=== PATIENT | female | born 1950 | race Caucasian/White ===

== ENCOUNTER → 2024-03-18 | Outpatient (CLI) | payer MEDICARE, BC, SELFPAY ==
[2024-03-18 11:31] LABS: Basophils % (Auto) 0 % (0-2.5); Eosinophils # (Auto) 0.2 Thou/mm3 (0.0-0.5); Eosinophils % (Auto) 4 % (0-10); Hematocrit 39.6 % (36.0-46.0); Hemoglobin 13.5 g/dL (12.0-16.0); Immature Granulocytes % (Auto) 0 % (0-0); Immature Granulocytes Auto 0.02 Thou/mm3 (0.00-0.00); Lymphocytes # (Auto) 1.5 Thou/mm3 (1.0-4.8); Lymphocytes % (Auto) 26 % (10-50); Mean Corpuscular HGB Conc 34.1 g/dl (31.0-37.0); Mean Corpuscular Hemoglobin 29.1 pg (25.0-35.0); Mean Corpuscular Volume 85 fL (80-100); Monocytes # (Auto) 0.7 Thou/mm3 (0.0-0.8); Monocytes % (Auto) 13 % (0-12); Neutrophils # (Auto) 3.3 Thou/mm3 (1.8-7.7); Neutrophils % (Auto) 57 % (37-80); Nucleated Red Blood Cell % 0 /100 WBC (0); Platelet Count 221 Thou/mm3 (140-440); RDW Standard Deviation 41.1 fL (36.4-46.3); Red Blood Count 4.64 Miln/mm3 (4.00-5.20); White Blood Count 5.8 Thou/mm3 (3.6-11.0)
[2024-03-18 12:08] LABS: Alanine Aminotransferase 20 U/L (10-49); Albumin, Serum 4.7 gm/dL (3.4-4.8); Albumin/Globulin Ratio 1.9 (1.2-2.2); Alkaline Phosphatase 53 U/L (46-116); Anion Gap 7 (7-16); Aspartate Amino Transferase 27 U/L (0-34); BUN/Creatinine Ratio 23 Ratio (12-20); Bilirubin,Total 0.3 mg/dL (0.3-1.2); Blood Urea Nitrogen 21 mg/dL (9-23); Calcium 9.9 mg/dL (8.3-10.6); Calcium (Corrected) 9.9 mg/dL (8.5-10.1); Carbon Dioxide 24.8 mMol/L (20.0-31.0); Cardiac Risk Estimate 3.6 RATIO (3.7-5.6); Chloride 102 mMol/L (98-107); Cholesterol 263 mg/dL (132-200); Creatinine (Component) 0.9 mg/dL (0.6-1.3); Globulin 2.5 gm/dL (2.3-3.5); Glucose 91 mg/dL (74-106); HDL Cholesterol 74 mg/dL (40-60); LDL Cholesterol,Calculated 156 mg/dL (0-130); Osmolality,Calculated 271 (275-295); Potassium 5.1 mMol/L (3.4-5.1); Sodium 134 mMol/L (136-145); Thyroid Stimulating Hormone 3.57 uIU/mL (0.55-4.78); Total Protein 7.2 gm/dL (5.7-8.2); Triglycerides 164 mg/dL (30-150); eGFR > 60 See Note
[2024-03-18 13:31] LABS: Collection Type, Urine Clean Catch
[2024-03-18 14:25] LABS: Bacteria,Urine Rare; Bilirubin,Urine Negative (Negative); Blood,Urine Negative (Negative); Color,Urine Yellow (Lt Yel-Yel); Glucose, Urine Negative (Negative); Ketones,Urine Negative (Negative); Leukocyte Esterase,Urine Positive (Negative); Nitrite,Urine Negative (Negative); Protein,Urine Trace (Neg - Trace); RBC,Urine 2 /hpf (0-3); Specific Gravity,Urine 1.021 (1.001-1.035); Squamous Epithelial Cell,Urine 8 /hpf (0-5); Transitional Epi Cells,Urine 2 /hpf (0-5); Urobilinogen,Urine Negative mg/dL (0.0-1.0); WBC,Urine 97 /hpf (0-5)
[2024-03-18 14:28] LABS: Clarity,Urine Hazy (Clear/Hazy); Culture Indicated,Urine Yes
== END | disposition home or self-care (01) ==
LOC: COPL 10:22
PROVIDERS: PCP Nurse Practitioner Family; Referring Provider Nurse Practitioner Family; Visit Provider Nurse Practitioner Family
DX: I10 Essential (primary) hypertension (principal); E03.9 Hypothyroidism, unspecified; E78.2 Mixed hyperlipidemia
CPT/HCPCS: 36415; 80053; 80061; 81001; 84443; 85025; 87086

== ENCOUNTER 2024-04-06 15:37 | Emergency (ER) | payer MEDICARE, BC, SELFPAY ==
[2024-04-06 15:39] VITALS: BP 146/84; PULSE 102; RESP 19; TEMP 37.2; O2SAT 98
--- NOTE | 2024-04-06 16:10 | PC.NURSE ---
Patient states that she knows she is in a hospital but she isn't sure which one, she is unaware of where she lives, and does not know who the president is. Oriented to name and date of . Pupils equal bilaterally, moderate strength to bilateral upper extremities. Pt states she is not in pain however she is feeling anxious.
--- NOTE | 2024-04-06 16:25 | PC.NURSE ---
Patient stated her had . 10 min later she stated she is waiting for him to come get her so she can go home
--- NOTE | 2024-04-06 17:09 | XR_ITS ---
Examination: AP chest single view Technique: AP portable upright chest single view Exam date and time: April 06, 2024 at 1755 hrs. Indications: Chest pain shortness of breath today Comparison: June 05, 2023 Findings: Significant hyperexpansion Normal heart size No pneumonia or pulmonary edema Impression: COPD No pneumonia or pulmonary edema
--- NOTE | 2024-04-06 17:09 | EKG_ITS ---
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
--- NOTE | 2024-04-06 17:15 | EDNOTE_ITS ---
Altered Mental Status RME/HPI General Chief Complaint: Altered Mental Status Stated Complaint: ALTERED Time Seen by Provider: 04/06/24 16:24 Arrival date/time: 04/06/24 15:37 RME / HPI RME / HPI narrative: 74-year-old female patient with significant history of hypertension, dementia, hypothyroidism, was brought in by family for evaluation regarding worsening confusion. It was noted earlier today severity of symptoms mild. On my eval uation, patient is denying any complaints. No vomiting no diarrhea. No fever. No cough. No abdominal pain. Family is worried that patient might be dehydrated. Related Data Home Medications ?Medication ?Instructions ?Recorded ?Confirmed benztropine 2 mg tablet 2 mg PO BID 06/15/20 07/29/20 amlodipine 5 mg tablet 10 mg PO QAM 07/29/20 07/29/20 gabapentin 300 mg capsule 300 mg PO QPM 07/29/20 07/29/20 metoprolol tartrate 50 mg tablet 50 mg PO QAM 07/29/20 07/29/20 mirtazapine 30 mg tablet 30 mg PO QPM 07/29/20 07/30/20 rosuvastatin 10 mg tablet 10 mg PO QAM 07/29/20 07/29/20 valproic acid 250 mg capsule 250 mg PO QAM 07/29/20 07/30/20 valproic acid 250 mg capsule 500 mg PO QPM 07/29/20 07/30/20 venlafaxine 150 mg tablet,extended 150 mg PO QAM 07/29/20 07/29/20 release 24 hr aripiprazole 10 mg tablet 10 mg PO QDAY 07/30/20 07/30/20 Previous Rx's ?Medication ?Instructions ?Recorded levothyroxine 100 mcg tablet 125 mcg (1.25 x 100 mcg) PO QAM #0 08/03/20 tabs levothyroxine 125 mcg capsule 125 mcg PO QDAY #30 caps 08/03/20 ciprofloxacin HCl 500 mg tablet 500 mg PO BID #20 tabs 02/19/22 prednisone 50 mg tablet 50 mg PO QDAY #5 tabs 06/05/23 Allergies Allergy/AdvReac Type Severity Reaction Status Date / Time No Known Allergies Allergy Unverified 06/16/20 10:30 Review of Systems Review of Systems Narrative Review of Systems: Review of system reviewed and within normal limits except mentioned in HPI ED Exam Narrative Physical exam: VITAL SIGNS: Reviewed. GENERAL APPEARANCE: Alert and interactive, follows simple commands, no acute distress, HEAD AND FACE: Non-traumatic. ENT: PERRL, pink conjunctivitis, eyelid no trauma, Mucous membrane moist. NECK: Supple, nontender, no nuchal rigidity. CHEST: No tenderness, no crepitus, no paradoxical movement, no retractions. LUNGS: Clear, well ventilated, symmetric, no rales, no wheezing, no ronchi, no stridor, good breath sounds bilaterally. HEART: Regular rate, regular rhythm, no murmur, no gallops. ABDOMEN: Soft, positive bowel sounds, nondistended, no guarding, nontender, no rebound, no masses, RECTAL: Deferred. GENITAL: Deferred. NEUROLOGICAL: Gross motor function intact sensory function intact, Appropriate for age. MUSCULOSKELETAL: low back nontender, full range of motion. EXTREMITIES: Nontender, full range of motion. SKIN: Color pink, dry, no rash, no lacerations, no abrasions, no contusions. LYMPHATICS: Deferred. Course Quality Measures none Orders Category Date Time Status EKG (ED ONLY) *Do not use* NOW Care 04/06/24 17:10 Completed EKG (ED Only) Stat Exams 04/06/24 17:09 Draft XR chest 1V portable Stat Exams 04/06/24 17:09 Completed B-Type Natriuretic Peptide Stat Lab 04/06/24 17:45 Completed CBC Stat Lab 04/06/24 17:45 Completed Comprehensive Metabolic Panel Stat Lab 04/06/24 17:45 Completed Troponin I Stat Lab 04/06/24 17:45 Completed Urinalysis Stat Lab 04/06/24 17:39 Completed Urine Culture Stat Lab 04/06/24 17:39 Received Sodium Chloride 0.9% 1000 ml [Ns] 1,000 ml Med 04/06/24 17:15 Discontinued IV 999 mls/hr Vital Signs Vital signs: Vital Signs Temperature 99.0 F 04/06/24 15:39 Pulse Rate 102 H 04/06/24 15:39 Respiratory Rate 19 04/06/24 15:39 Blood Pressure 146/84 H 04/06/24 15:39 Pulse Oximetry (%) 98 04/06/24 15:39 Oxygen Delivery Method Room Air 04/06/24 15:39 Altered Mental Status MDM Narrative MDM Narrative:: Patient workup today all came back normal no UTI x-ray no pneumonia, patient was given IV fluids and was noted to be more alert than usual according to the family. Patient is ambulatory unaided also. Patient stable for discharge home Patient data External records reviewed:: None Clinical information provided by:: family Social determinants that could affect healthcare access:: none Patient has the following chronic illnesses:: Dementia hypertension How is presenting disease/condition affected by chronic disease/condition?: exacerbated by Evaluation data The following diagnostics were reviewed and interpreted by me:: lab results, radiology exam(s) and EKG tracing(s) Lab and/or radiology exams considered but not ordered:: None Interpretation Summary: Laboratory workup all came back unremarkable. I personally reviewed and interpreted the x-ray of this patient. There is no acute abnormalities found, no infiltrates no pneumothorax no hemothorax normal chest x-ray. Review of other structures was without significant abnormal findings also. I additionally reviewed the radiologist report and agree with the interpretation. Urinalysis no UTI EKG showed as interpreted by me as normal sinus rhythm, ventricular rate of 65 bpm, no ST segment elevation or depression noted Medications / Prescriptions Medications or Prescriptions considered but not ordered:: None Medication administrations:: Medication Administration History Discontinued Medications Sodium Chloride (Ns) 1,000 mls @ 999 mls/hr IV .Q1H1M ONE Stop: 04/06/24 18:15 Last Infusion: 04/06/24 18:29 Dose: Infused Documented By: Admin: 04/06/24 17:25 Dose: 999 mls/hr Documented By: IV fluids for hydration Consultations Consultation(s) initiated? (list below): No Diagnosis Differential diagnosis altered mental status: altered mental status, delirium and other (Dehydration) Most likely diagnosis given after review of the tests above:: Dehydration, history of dementia Admission Indicated Admission indicated?: not indicated Admission Request Was there a request for admission?: No Disposition Plan Disposition Plan: Discharge Discharge Attestation Discharge Attestation: The patient and all family members were given an opportunity to ask questions and understood the discharge instructions. Discharge instructions specifically effects, indications for sooner follow up or return to the emergency department, and the expected course of current diagnosis. Patient condition: Stable Discharge Plan Plan Patient Disposition: HOME (Self Care) Disposition Comment: Stable Prescriptions/Referrals Prescriptions/Med Rec: No Action benztropine 2 mg Tablet 2 mg PO BID valproic acid 250 mg Capsule 250 mg PO QAM valproic acid 250 mg Capsule 500 mg PO QPM mirtazapine 30 mg Tablet 30 mg PO QPM metoprolol tartrate 50 mg Tablet 50 mg PO QAM gabapentin 300 mg Capsule 300 mg PO QPM venlafaxine 150 mg Tablet Extended Release 24hr 150 mg PO QAM rosuvastatin 10 mg Tablet 10 mg PO QAM amlodipine 5 mg tablet 10 mg PO QAM aripiprazole 10 mg Tablet 10 mg PO QDAY levothyroxine 125 mcg capsule 125 mcg PO QDAY Qty: 30 0RF levothyroxine 100 mcg Tablet 125 mcg PO QAM Qty: 0 0RF prednisone 50 mg tablet 50 mg PO QDAY Qty: 5 0RF Rx Instructions: Begin taking this medication tomorrow ciprofloxacin HCl 500 mg tablet 500 mg PO BID Qty: 20 0RF Referrals: Thom Molina MD [Primary Care Provider] - In 1 week Problem List Clinical Impression: Dehydration Patient/Caregiver Discharge Instructions Discharge Activity: activity as tolerated Education Materials: Dehydration Additional Instructions: Thank you for the opportunity for serving you today. You are stable for discharged . You are advised to: Follow-up with your PCP in 1 to 2 days Return to ED for worsening of symptoms Increase oral fluids Print Language: Korean Stand Alone Forms: Priscila Award Info., Patient Portal Info Letter JENNY/THEODORE Supervising Physician JENNY/THEODORE Supervising Physician: MD Wiliam
[2024-04-06] MEDS: SODIUM CHLORIDE 0.9% 1000 ML 1,000 ML 999 ML IV (17:25)
[2024-04-06 17:27] VITALS: BMI 25.0
[2024-04-06 17:45] LABS: Collection Type, Urine Catheter; Squamous Epithelial Cell,Urine 0 /hpf (0-5)
[2024-04-06 17:51] LABS: Bilirubin,Urine Negative (Negative); Blood,Urine Negative (Negative); Clarity,Urine Clear (Clear/Hazy); Color,Urine Colorless (Lt Yel-Yel); Glucose, Urine Negative (Negative); Ketones,Urine Negative (Negative); Leukocyte Esterase,Urine Negative (Negative); Nitrite,Urine Negative (Negative); Protein,Urine Negative (Neg - Trace); RBC,Urine 1 /hpf (0-3); Specific Gravity,Urine 1.012 (1.001-1.035); Urobilinogen,Urine Negative mg/dL (0.0-1.0); WBC,Urine < 1 /hpf (0-5)
[2024-04-06 17:58] LABS: Basophils % (Auto) 1 % (0-2.5); Eosinophils # (Auto) 0.1 Thou/mm3 (0.0-0.5); Eosinophils % (Auto) 2 % (0-10); Hemoglobin 12.4 g/dL (12.0-16.0); Immature Granulocytes % (Auto) 0 % (0-0); Immature Granulocytes Auto 0.01 Thou/mm3 (0.00-0.00); Lymphocytes # (Auto) 1.7 Thou/mm3 (1.0-4.8); Lymphocytes % (Auto) 32 % (10-50); Mean Corpuscular HGB Conc 33.5 g/dl (31.0-37.0); Mean Corpuscular Hemoglobin 29.2 pg (25.0-35.0); Mean Corpuscular Volume 87 fL (80-100); Monocytes # (Auto) 0.7 Thou/mm3 (0.0-0.8); Monocytes % (Auto) 13 % (0-12); Neutrophils # (Auto) 2.9 Thou/mm3 (1.8-7.7); Neutrophils % (Auto) 53 % (37-80); Nucleated Red Blood Cell % 0 /100 WBC (0); Platelet Count 193 Thou/mm3 (140-440); RDW Standard Deviation 41.8 fL (36.4-46.3); Red Blood Count 4.25 Miln/mm3 (4.00-5.20); White Blood Count 5.4 Thou/mm3 (3.6-11.0)
[2024-04-06 18:16] LABS: B-Type Natriuretic Peptide < 20 pg/mL (0-100)
[2024-04-06 18:19] LABS: Alanine Aminotransferase 14 U/L (10-49); Albumin, Serum 4.4 gm/dL (3.4-4.8); Albumin/Globulin Ratio 1.8 (1.2-2.2); Alkaline Phosphatase 56 U/L (46-116); Anion Gap 5 (7-16); BUN/Creatinine Ratio 17 Ratio (12-20); Bilirubin,Total 0.3 mg/dL (0.3-1.2); Blood Urea Nitrogen 19 mg/dL (9-23); Calcium 9.3 mg/dL (8.3-10.6); Calcium (Corrected) 9.3 mg/dL (8.5-10.1); Carbon Dioxide 30.3 mMol/L (20.0-31.0); Chloride 102 mMol/L (98-107); Creatinine (Component) 1.1 mg/dL (0.6-1.3); Estimated Creatinine Clearance 41.6 mL/min (>60); Globulin 2.4 gm/dL (2.3-3.5); Glucose 110 mg/dL (74-106); Osmolality,Calculated 277 (275-295); Potassium 4.3 mMol/L (3.4-5.1); Sodium 137 mMol/L (136-145); Total Protein 6.8 gm/dL (5.7-8.2); Troponin I < 0.020 ng/mL (0.0-0.045); eGFR 53 See Note
[2024-04-06 18:35] LABS: Aspartate Amino Transferase 19 U/L (0-34)
[2024-04-06 18:37] VITALS: BP 155/78; PULSE 64; RESP 20; TEMP 36.7; O2SAT 98
[2024-04-06 19:53] VITALS: BP 167/69; PULSE 70; RESP 19; TEMP 36.7; O2SAT 100
== END 2024-04-06 20:22 | disposition home or self-care (01) ==
PROVIDERS: Emergency Provider Emergency Medicine; PCP Family Medicine
DX: E86.0 Dehydration (principal); R07.9 Chest pain, unspecified; R06.02 Shortness of breath; I10 Essential (primary) hypertension; F03.90 Unspecified dementia, unspecified severity, without behavioral disturbance, psychotic disturbance, mood disturbance, and anxiety
CPT/HCPCS: 51701; 36415; 71045; 80053; 81001; 83880; 84484; 85025; 87086; 93005; 96360; 99284; J7030

== ENCOUNTER 2024-06-19 07:34 | Emergency (ER) | payer SELFPAY ==
[2024-06-19] VITALS (8 sets, daily range): BP systolic 114–172; BP diastolic 53–85; PULSE 70–91; RESP 17–29; TEMP 36.9–37.6; O2SAT 91–99; BMI 21.6
--- NOTE | 2024-06-19 | XR_ITS ---
Examinations: MRI Brain without intravenous contrast. MRA brain without intravenous contrast. MRA carotids without intravenous contrast 3-D vascular reconstructions Date and time of exam: June 19, 2024 1358 hours INDICATIONS: Expressive aphasia today Technique: Multiple axial and sagittal images of the brain have been obtained MRA brain carotid images without contrast obtained, including 3-D postprocessing, vascular maximum intensity projection images Findings: Sellaturcica is not enlarged. The optic chiasm and infundibular stalk are not remarkable. Prepontine and interpeduncular cisterns are not enlarged. No localized enlargement of the medulla or cee. Fourth ventricle and cerebellar tonsils normal in position. Subacute hemorrhage is not seen. Fourth ventricle is midline. Mass in the cerebellopontine angle region is not evident. 7th and 8th nerve complexes exhibits symmetry. Globes are symmetrical with no retro-orbital mass. Increased white matter signal very prominent Diffusion-weighted images demonstrate no focus of restricted diffusion Mass-effect upon the ventricular system is not identified. MRA brain images no cerebral large vessel occlusions Impression: Negative for acute hemorrhage mass effect or midline shift No acute infarct Very prominent chronic microvascular white matter change, differential would include chronic multi-infarct dementia pattern
--- NOTE | 2024-06-19 08:23 | PC.NURSE ---
Patient [facility] for c/o Altered, lethargic, more confused than normal, not eating or drinking since monday and pain with urination. Patient is awake, alert, following commands, Per patient cannot recall as to reason for presenting to ED but does respond to name, place cannot recall day/time. Patient stated Im thirsty and my mouth is dry. Patient oriented to nurse and call light is placed within reach.
--- NOTE | 2024-06-19 09:04 | XR_ITS ---
Examination: CT brain head without contrast. 2-D sagittal coronal reconstructions Date and time of exam:June 19, 2024 1041 hours INDICATIONS: Onset altered mental status today CTDI: vol (mGy):47.8 DLP: (mGycm):914 Technique: Multiple CT axial sections of the brain have been obtained, 5 mm slice thickness. Contrast has not been administered. 2-D sagittal, coronal reconstructions have been obtained Low dose protocols were performed. One or more of the following dose reduction techniques were used; automated exposure control, adjustment of the mA and/or KV according to patient size, use of iterative reconstruction technique. Findings: No significant ventricular enlargement. 21 mm ethmoid retention cysts Intra-axial or extra-axial hemorrhage density is not seen. No mass effect or midline shift Basal cisterns are not remarkable. Fourth ventricle is midline. Cranial vault intact. Impression: Negative for acute hemorrhage, mass effect or midline shift Advise clinical correlation and follow-up accordingly
--- NOTE | 2024-06-19 09:04 | XR_ITS ---
Examination: AP chest single view Technique one AP portable upright chest single view Exam date and time: March 19, 2025 0909 hours INDICATIONS: Chest pain today FINDINGS: Mild accentuation basilar bronchovascular markings Normal heart size Prominent osteopenia No pneumonia or pulmonary edema IMPRESSION: Mild basilar bronchitis pattern
--- NOTE | 2024-06-19 09:38 | PD.EDAMS ---
Altered Mental Status RME/HPI General Chief Complaint: Altered Mental Status Stated Complaint: AMS Time Seen by Provider: 06/19/24 08:44 Arrival date/time: 06/19/24 07:34 RME / HPI RME / HPI narrative: DR. POLANCO MAIN ED EVALUATION: 74 year old female with past medical history significant for TX, dementia presents to the Emergency Department [facility] with complaint of altered mental status per EMS. History is limited. Patient is awake, smiling, talks 1-2 words sentences but then unable to recall stuff. Patient does not know why she is here. Patient denies any pain. Related Data Home Medications ?Medication ?Instructions ?Recorded ?Confirmed benztropine 2 mg tablet 2 mg PO BID 06/15/20 07/29/20 amlodipine 5 mg tablet 10 mg PO QAM 07/29/20 07/29/20 gabapentin 300 mg capsule 300 mg PO QPM 07/29/20 07/29/20 metoprolol tartrate 50 mg tablet 50 mg PO QAM 07/29/20 07/29/20 mirtazapine 30 mg tablet 30 mg PO QPM 07/29/20 07/30/20 rosuvastatin 10 mg tablet 10 mg PO QAM 07/29/20 07/29/20 valproic acid 250 mg capsule 250 mg PO QAM 07/29/20 07/30/20 valproic acid 250 mg capsule 500 mg PO QPM 07/29/20 07/30/20 venlafaxine 150 mg tablet,extended 150 mg PO QAM 07/29/20 07/29/20 release 24 hr aripiprazole 10 mg tablet 10 mg PO QDAY 07/30/20 07/30/20 Previous Rx's ?Medication ?Instructions ?Recorded levothyroxine 100 mcg tablet 125 mcg (1.25 x 100 mcg) PO QAM #0 08/03/20 tabs levothyroxine 125 mcg capsule 125 mcg PO QDAY #30 caps 08/03/20 ciprofloxacin HCl 500 mg tablet 500 mg PO BID #20 tabs 02/19/22 prednisone 50 mg tablet 50 mg PO QDAY #5 tabs 06/05/23 Allergies Allergy/AdvReac Type Severity Reaction Status Date / Time No Known Allergies Allergy Unverified 06/20/24 10:03 Review of Systems Review of Systems ROS Unobtainable: unobtainable due to mental status Past Medical History Past Medical History NEUROLOGIC: Positive Dementia CARDIAC: Positive Myocardial Infarction Social History SMOKING STATUS: Never smoker SUBSTANCE USE: does not use ALCOHOL: Never ED Exam Narrative Physical exam: GENERAL APPEARANCE: Patient is awake, smiling, talks 1-2 words sentences but then unable to recall stuff. Generally well-appearing, no acute distress. HEENT: NC, AT. MMM. EOMI, clear conjunctiva, oropharynx clear. NECK: Supple without lymphadenopathy. No stiffness or restricted ROM. HEART: Normal rate and regular rhythm, normal S1/S1, no m/r/g LUNGS: CTAB, moving air well. No crackles or wheezes are heard. ABDOMEN: Soft, nontender, nondistended with good bowel sounds heard. BACK: No midline C/T/L spine pain or deformity, No CVAT, no obvious deformity. EXTREMITIES: Without cyanosis, clubbing or edema. MUSCULOSKELETAL: FROM of all major joints, no chest tenderness NEUROLOGICAL: Grossly nonfocal. CN not formally tested but appear grossly intact. Skin: Warm and dry without any rash. Course Course Course Narrative: Patient remained clinically stable within normal neurologic exam throughout her stay. Patient's granddaughter had arrived and we discussed her mental status. There is suspicion that she has growing dementia, and does not necessarily identify any acute deterioration, however it has been gradually worsening. Reviewed all results, analysis, treatment plan with the granddaughter and she feels comfortable taking her grandmother home. Quality Measures none Orders Category Date Time Status MRI Screening NOW Care 06/19/24 11:[address] head/brain wo con Stat Exams 06/19/24 09:04 Completed MR stroke protocol Stat Exams 06/19/24 Completed XR chest 1V Stat Exams 06/19/24 09:04 Completed Acetaminophen Stat Lab 06/19/24 09:59 Completed Alcohol, Urine Stat Lab 06/19/24 15:29 Completed CBC Stat Lab 06/19/24 09:59 Completed CMP [Comprehensive Metabolic Panel] Stat Lab 06/19/24 09:59 Completed Drug Screen,Urine Stat Lab 06/19/24 15:29 Completed Lactate (Lactic Acid) Stat Lab 06/19/24 09:59 Completed Procalcitonin Stat Lab 06/19/24 09:59 Completed Urinalysis Stat Lab 06/19/24 15:29 Completed Vital Signs Vital signs: Vital Signs Temperature 99.6 F 06/19/24 07:51 Pulse Rate 70 06/19/24 07:51 Respiratory Rate 18 06/19/24 07:51 Blood Pressure 114/64 06/19/24 07:51 Pulse Oximetry (%) 99 06/19/24 07:51 Oxygen Delivery Method Room Air 06/19/24 07:51 Altered Mental Status MDM Narrative MDM Narrative:: Ms. Martinez presents to the emergency department with a report of altered mental status, however if she does not recall why she is here. Clinically she is well-appearing, nontoxic, with a nonfocal neurologic exam. Initial presentation I was able to corroborate further information therefore workup was done including laboratory test and head CT. Results were otherwise unremarkable and significant for no acute intracerebral findings, no electrolyte abnormalities, and no signs of a urinary tract infection. Her granddaughter did come to tend to her wires and noticed that this appears to be more of a subacute to chronic deterioration of her mental status which has been attributed to dementia. To me her picture and her mental status is fitting more with chronic dementia without any acute finding here today. I do not feel that there is an acute delirium present today as she has stable vital signs, nonfocal exam, and no emergent findings on workup. All results were discussed with granddaughter and she does feel comfortable taking the patient home, she is appropriate for outpatient follow-up. I, Ying Cantu, am scribing for and in the presence of Dr. Polanco. Patient data External records reviewed:: EMS form Clinical information provided by:: EMS Social determinants that could affect healthcare access:: none Patient has the following chronic illnesses:: TX, dementia How is presenting disease/condition affected by chronic disease/condition?: exacerbated by Evaluation data The following diagnostics were reviewed and interpreted by me:: lab results and radiology exam(s) Lab and/or radiology exams considered but not ordered:: none Interpretation Summary: Procedure(s): XR chest 1V Accession Number(s): [id number] cc: Cristino Polanco MD; Boni Rasheed MD; NO PRIMARY/FAMILY,PHYSICIAN~ Examination: AP chest single view Technique one AP portable upright chest single view Exam date and time: March 19, 2025 0909 hours INDICATIONS: Chest pain today FINDINGS: Mild accentuation basilar bronchovascular markings Normal heart size Prominent osteopenia No pneumonia or pulmonary edema IMPRESSION: Mild basilar bronchitis pattern Dictated By: Boni Rasheed MD Procedure(s): CT head/brain wo con Accession Number(s): [id number] cc: Cristino Polanco MD; Boni Rasheed MD; NO PRIMARY/FAMILY,PHYSICIAN~ Examination: CT brain head without contrast. 2-D sagittal coronal reconstructions Date and time of exam:June 19, 2024 1041 hours INDICATIONS: Onset altered mental status today CTDI: vol (mGy):47.8 DLP: (mGycm):914 Technique: Multiple CT axial sections of the brain have been obtained, 5 mm slice thickness. Contrast has not been administered. 2-D sagittal, coronal reconstructions have been obtained Low dose protocols were performed. One or more of the following dose reduction techniques were used; automated exposure control, adjustment of the mA and/or KV according to patient size, use of iterative reconstruction technique. Findings: No significant ventricular enlargement. 21 mm ethmoid retention cysts Intra-axial or extra-axial hemorrhage density is not seen. No mass effect or midline shift Basal cisterns are not remarkable. Fourth ventricle is midline. Cranial vault intact. Impression: Negative for acute hemorrhage, mass effect or midline shift Advise clinical correlation and follow-up accordingly Dictated By: Boni Rasheed MD Procedure(s): MR stroke protocol Accession Number(s): [id number] cc: Cristino Polanco MD; Boni Rasheed MD; NO PRIMARY/FAMILY,PHYSICIAN~ Examinations: MRI Brain without intravenous contrast. MRA brain without intravenous contrast. MRA carotids without intravenous contrast 3-D vascular reconstructions Date and time of exam: June 19, 2024 1358 hours INDICATIONS: Expressive aphasia today Technique: Multiple axial and sagittal images of the brain have been obtained MRA brain carotid images without contrast obtained, including 3-D postprocessing, vascular maximum intensity projection images Findings: Sellaturcica is not enlarged. The optic chiasm and infundibular stalk are not remarkable. Prepontine and interpeduncular cisterns are not enlarged. No localized enlargement of the medulla or cee. Fourth ventricle and cerebellar tonsils normal in position. Subacute hemorrhage is not seen. Fourth ventricle is midline. Mass in the cerebellopontine angle region is not evident. 7th and 8th nerve complexes exhibits symmetry. Globes are symmetrical with no retro-orbital mass. Increased white matter signal very prominent Diffusion-weighted images demonstrate no focus of restricted diffusion Mass-effect upon the ventricular system is not identified. MRA brain images no cerebral large vessel occlusions Impression: Negative for acute hemorrhage mass effect or midline shift No acute infarct Very prominent chronic microvascular white matter change, differential would include chronic multi-infarct dementia pattern Dictated By: Boni Rasheed MD Medications / Prescriptions Medications or Prescriptions considered but not ordered:: none Medication administrations:: see above if any Consultations Consultation(s) initiated? (list below): No Diagnosis Differential diagnosis altered mental status: altered mental status, dementia and other (dehydration, UTI, CVA) Most likely diagnosis given after review of the tests above:: Dementia Admission Indicated Admission indicated?: not indicated Admission Request Was there a request for admission?: No Disposition Plan Disposition Plan: Discharge Discharge Attestation Discharge Attestation: The patient and all family members were given an opportunity to ask questions and understood the discharge instructions. Discharge instructions specifically effects, indications for sooner follow up or return to the emergency department, and the expected course of current diagnosis. Patient condition: Stable Discharge Plan Plan Patient Disposition: HOME (Self Care) Prescriptions/Referrals Prescriptions/Med Rec: No Action benztropine 2 mg Tablet 2 mg PO BID valproic acid 250 mg Capsule 250 mg PO QAM valproic acid 250 mg Capsule 500 mg PO QPM mirtazapine 30 mg Tablet 30 mg PO QPM metoprolol tartrate 50 mg Tablet 50 mg PO QAM gabapentin 300 mg Capsule 300 mg PO QPM venlafaxine 150 mg Tablet Extended Release 24hr 150 mg PO QAM rosuvastatin 10 mg Tablet 10 mg PO QAM amlodipine 5 mg tablet 10 mg PO QAM aripiprazole 10 mg Tablet 10 mg PO QDAY levothyroxine 125 mcg capsule 125 mcg PO QDAY Qty: 30 0RF levothyroxine 100 mcg Tablet 125 mcg PO QAM Qty: 0 0RF prednisone 50 mg tablet 50 mg PO QDAY Qty: 5 0RF Rx Instructions: Begin taking this medication tomorrow ciprofloxacin HCl 500 mg tablet 500 mg PO BID Qty: 20 0RF Referrals: No Primary/Family,Physician [Primary Care Provider] - In 1 week Problem List Clinical Impression: Dementia Patient/Caregiver Discharge Instructions Education Materials: ED CAREGIVER SUPPORT for DEMENTIA Additional Instructions: Your urine results were clear today, follow-up with your primary doctor in 2-3 days for recheck. Feel free to return to the emergency department sooner symptoms worsen or if notes any new, concerning issues. Print Language: Pashto Stand Alone Forms: Priscila Award Info., Patient Portal Info Letter
[2024-06-19 10:11] LABS: Lactate (Lactic Acid) 1.1 mMol/L (0.4-2.0)
[2024-06-19 10:13] LABS: Basophils % (Auto) 0 % (0-2.5); Eosinophils % (Auto) 1 % (0-10); Hematocrit 38.4 % (36.0-46.0); Hemoglobin 12.8 g/dL (12.0-16.0); Immature Granulocytes % (Auto) 0 % (0-0); Immature Granulocytes Auto 0.01 Thou/mm3 (0.00-0.00); Lymphocytes # (Auto) 0.5 Thou/mm3 (1.0-4.8); Lymphocytes % (Auto) 11 % (10-50); Mean Corpuscular HGB Conc 33.3 g/dl (31.0-37.0); Mean Corpuscular Volume 87 fL (80-100); Monocytes # (Auto) 0.9 Thou/mm3 (0.0-0.8); Monocytes % (Auto) 18 % (0-12); Neutrophils # (Auto) 3.6 Thou/mm3 (1.8-7.7); Neutrophils % (Auto) 70 % (37-80); Nucleated Red Blood Cell % 0 /100 WBC (0); Platelet Count 154 Thou/mm3 (140-440); RDW Standard Deviation 40.1 fL (36.4-46.3); Red Blood Count 4.42 Miln/mm3 (4.00-5.20); White Blood Count 5.1 Thou/mm3 (3.6-11.0)
[2024-06-19 10:52] LABS: Acetaminophen < 2.0 mcg/mL (10.0-20.0); Alanine Aminotransferase 26 U/L (10-49); Albumin, Serum 4.4 gm/dL (3.4-4.8); Albumin/Globulin Ratio 1.7 (1.2-2.2); Alkaline Phosphatase 67 U/L (46-116); Anion Gap 6 (7-16); Aspartate Amino Transferase 31 U/L (0-34); BUN/Creatinine Ratio 14 Ratio (12-20); Bilirubin,Total 0.3 mg/dL (0.3-1.2); Blood Urea Nitrogen 13 mg/dL (9-23); Calcium 9.6 mg/dL (8.3-10.6); Calcium (Corrected) 9.6 mg/dL (8.5-10.1); Carbon Dioxide 31.8 mMol/L (20.0-31.0); Chloride 96 mMol/L (98-107); Creatinine (Component) 0.9 mg/dL (0.6-1.3); Estimated Creatinine Clearance 50.8 mL/min (>60); Globulin 2.6 gm/dL (2.3-3.5); Glucose 97 mg/dL (74-106); Osmolality,Calculated 268 (275-295); Potassium 4.6 mMol/L (3.4-5.1); Procalcitonin 0.05 ng/ml (0.0-0.49); Sodium 134 mMol/L (136-145); eGFR > 60 See Note
[2024-06-19 15:39] LABS: Collection Type, Urine Clean Catch; Squamous Epithelial Cell,Urine 0 /hpf (0-5); WBC,Urine 0 /hpf (0-5)
[2024-06-19 16:01] LABS: Alcohol, Urine Negative (Negative); Amphetamine/Methamp Scrn,U Negative (Negative); Barbiturate Screen,Urine Negative (Negative); Benzodiazepines Screen,Urine Negative (Negative); Benzoylecgonine Screen, Ur Negative (Negative); Fentanyl Screen,Urine Negative (Negative); Opiate Screen,Urine Positive (Negative); THC Screen,Urine Negative (Negative)
[2024-06-19 16:28] LABS: Bilirubin,Urine Negative (Negative); Blood,Urine Negative (Negative); Clarity,Urine Clear (Clear/Hazy); Color,Urine Lt-Yellow (Lt Yel-Yel); Glucose, Urine Negative (Negative); Ketones,Urine 1+ (Negative); Leukocyte Esterase,Urine Negative (Negative); Nitrite,Urine Negative (Negative); Protein,Urine Negative (Neg - Trace); RBC,Urine 2 /hpf (0-3); Specific Gravity,Urine 1.016 (1.001-1.035); Urobilinogen,Urine Negative mg/dL (0.0-1.0)
--- NOTE | 2024-06-19 19:14 | PC.NURSE ---
attempted to call patients family for discharge home Angel Martinez [phone] and Nancy [phone] no answer will attempt to call again.
== END 2024-06-19 19:53 | disposition home or self-care (01) ==
PROVIDERS: Emergency Provider Emergency Medicine
DX: F03.90 Unspecified dementia, unspecified severity, without behavioral disturbance, psychotic disturbance, mood disturbance, and anxiety (principal); I25.2 Old myocardial infarction
CPT/HCPCS: 36415; 70450; 70544; 71045; 80053; 80307; 80320; 80329; 81001; 83605; 84145; 85025; 99284; G0480

== ENCOUNTER → 2024-10-25 | Outpatient (CLI) | payer MEDICARE, SELFPAY ==
[2024-10-25 14:24] LABS: Collection Type, Urine Clean Catch
[2024-10-25 16:17] LABS: Bilirubin,Urine Negative (Negative); Blood,Urine Negative (Negative); Clarity,Urine Clear (Clear/Hazy); Color,Urine Lt-Yellow (Lt Yel-Yel); Glucose, Urine Negative (Negative); Ketones,Urine Negative (Negative); Leukocyte Esterase,Urine Positive (Negative); Nitrite,Urine Negative (Negative); Protein,Urine Negative (Neg - Trace); RBC,Urine 1 /hpf (0-3); Specific Gravity,Urine 1.013 (1.001-1.035); Squamous Epithelial Cell,Urine 3 /hpf (0-5); Urobilinogen,Urine Negative mg/dL (0.0-1.0); WBC,Urine 13 /hpf (0-5)
[2024-10-25 16:25] LABS: Amphetamine/Methamp Scrn,U Negative (Negative); Barbiturate Screen,Urine Negative (Negative); Benzodiazepines Screen,Urine Negative (Negative); Benzoylecgonine Screen, Ur Negative (Negative); Fentanyl Screen,Urine Negative (Negative); Opiate Screen,Urine Positive (Negative); THC Screen,Urine Negative (Negative)
== END | disposition home or self-care (01) ==
PROVIDERS: Referring Provider Registered Nurse; Visit Provider Registered Nurse
DX: M54.50 Low back pain, unspecified (principal); G89.4 Chronic pain syndrome; R30.0 Dysuria; R41.0 Disorientation, unspecified
CPT/HCPCS: 80307; 81001; 87086

== ENCOUNTER → 2025-04-02 | Outpatient (CLI) | payer MEDICARE, BC, SELFPAY ==
--- NOTE | 2025-04-02 14:00 | XR_ITS ---
Examination: CT abdomen and pelvis without contrast. Coronal 3-D reconstructions. Sagittal 2-D reconstructions. Date and time of exam: April 02, 2025, 1415 hours INDICATIONS: Right upper abdominal pain 1 year COMPARISON: August 01, 2022 CTDI: vol (mGy): 6.51 DLP: (mGycm): 712 Technique: Axial images of the abdomen have been obtained, 3 mm slice thickness Intravenous contrast material has not been administered. Low dose protocols were performed. One or more of the following dose reduction techniques were used; automated exposure control, adjustment of the mA and/or KV according to patient size, use of iterative reconstruction technique. Findings: No visualized liver or splenic lesion Contracted gallbladder No pancreatic mass Prominent bilateral renal scarring No renal or ureteral calculi, no hydronephrosis Heavy abdominal aortic calcification No bowel obstruction No diverticulitis, no pericecal inflammatory change Urinary bladder intact Absent uterus Severe osteopenia Advanced disc narrowing L5-S1 IMPRESSION: No renal or ureteral calculi, prominent bilateral renal scarring No CT findings of appendicitis bowel obstruction or diverticulitis Given the patient's presentation, consider hepatobiliary sonography follow-up
== END | disposition home or self-care (01) ==
LOC: CCTX 13:57
PROVIDERS: PCP Registered Nurse; Referring Provider Registered Nurse; Visit Provider Registered Nurse
DX: R10.9 Unspecified abdominal pain (principal)
CPT/HCPCS: 74176